=== PATIENT | male | born 1980 | race Caucasian/White ===

== ENCOUNTER 2022-04-02 19:20 | Emergency (ER) | payer BC, OTHER ==
[~2022-04-02] VITALS: Ht 162.6 cm; Wt 121.1 kg
--- OUTSIDE RECORDS SUMMARY | 2022-04-02 19:24 | XMS ---
PreManage Notification: RY ROSARIO Security Circus Performer Events No recent Security Events currently on file CR[facility]IA MET - [facility] There are no care providers on record at this time. Trisha has no Care Guidelines for this patient. Amanda VISIT COUNT (12 MO.) 1 LISA Cox TOTAL 1 NOTE: Visits indicate total known visits. ED/C VISIT TRACKING (12 MO.) 04/02/2022 19:23 LISA White [place] TYPE: Emergency COMPLAINT: - R SIDE PAIN INPATIENT VISIT TRACKING (12 MO.) No inpatient visits to display in this time frame [email or web address]
[2022-04-02] MEDS ORDERED: LISINOPRIL-HCT1 EACH PO (19:35)
[2022-04-02] MEDS ORDERED: TESTOSTERO200 MG/1 M IM (19:35)
== END 2022-04-02 21:28 | disposition home or self-care (01) ==
LOC: ED 19:20
DX: R10.31 Right lower quadrant pain (principal); Z79.899 Other long term (current) drug therapy
CPT/HCPCS: 36415; 74176; 80053; 81003; 83690; 85025; 99284-25; J7030

== ENCOUNTER 2024-01-01 07:31 | Day surgery (SDC) | payer BC, OTHER ==
[~2024-01-01] VITALS: Ht 162.6 cm; Wt 120.0 kg
[~2024-01-01 07:31] MED LIST: IBLOOD GLUCOSE TEST STRIP 1 EA TEST VI PRN; LACTATED RINGER'S 1,000 ML IV SCH; LIDOCAINE HCL 1% 5 ML SDV INJ ONE; LISINOPRIL-HCT1 EACH PO; MIDAZOLAM HCL 5 MG/5 ML VIAL IV PRN; TESTOSTERO200 MG/1 M IM; VITAMIN D3125 MC1 PO; fentaNYL citrate 100 MCG/2 ML VIAL IV PRN
[2024-01-01 08:00] VITALS: BP 142/86
--- NOTE | 2024-01-01 08:16 | NUR ---
mom waiting and is dray driver.
[2024-01-01] MEDS ORDERED: fentaNYL citrate 100 MCG/2 ML VIAL ONE (08:29)
[2024-01-01] MEDS ORDERED: MIDAZOLAM HCL 5 MG/5 ML VIAL ONE (08:29)
--- NOTE | 2024-01-01 09:22 | NUR ---
01/01/24 0922 Lisa Fitzpatrick 0910-PATIENT ARRIVED TO PACU ON 3L NC HOB ELEVATED. PATIENT DROWSY ORIENTED TO PACU DENIES PAIN OR NAUSEA. IVF INFUSING. ENCOURAGED TO PASS GAS. 0920-PATIENT REMAINS DROWSY DOZES OFF AND ON 3L NC 96% RR EVEN. STOP BANG SCORE OF 3. SLEEP APNEA HANDOUT TO BE GIVEN.
[2024-01-01 09:49] VITALS: BP 139/85
--- NOTE | 2024-01-02 06:01 | OR ---
[facility] [address] [place], [place] [address] Signed DATE OF OPERATION: 01/01/2024 SURGEON: Juvenal Torres MD PREOPERATIVE DIAGNOSES: 1. Screening. 2. Anal pain. 3. Constipation, diarrhea. POSTOPERATIVE DIAGNOSES: 1. Multiple small perianal skin tags. 2. Healed anterior midline anal fissure. 3. Minimal internal hemorrhoids. 4. Hypertensive anal sphincter tone. PROCEDURE: Colonoscopy with random cold biopsies. ESTIMATED BLOOD LOSS: None. INDICATIONS: Willian is a 43-year-old, obese gentleman with a body mass index of 45. He has a very round full face, very short heavy thick neck, very heavy chest and abdomen. He had been asked to see me in the office mainly for screening purposes. He tells me there is no family history of colon cancer or polyps. He started to talk about various issues with his lower GI tract. He said sometimes he has constipation, sometimes diarrhea. He said sometimes he feels pressure and sometimes there is some pain at the anus. He is describing some level of constipation and diarrhea. He had come to the office with his friend. I gave him a pamphlet on colonoscopy. We had reviewed the nature of the test. There is risk including, but not limited to gas bloating, crampy abdominal pain, bleeding, perforation requiring surgery, and missed diagnosis. We also reviewed the written instructions for a bowel prep line by line. He understands the need for IV conscious sedation. He understands and adult person has to take him home afterwards. He had expressed understanding and wished to proceed. PROCEDURE IN DETAIL: Willian was taken into our endoscopy suite and placed in the left lateral decubitus position. He was given a total of 125 mcg of fentanyl and 7 mg of Versed. Even then he was still awake. We had to switch him over to 8 L/minute on OxyMask to maintain his O2 Electronically Signed By: JUVENAL TORRES MD 01/02/24 0601 PATIENT NAME: WILLIAN ROSARIO OPERATIVE REPORT DATE OF : 76 REPORT #: [id number] PHYSICIAN: JUVENAL TORRES MD PCP: BRAD ASTUDILLO MD REPORT IS CONFIDENTIAL AND NOT TO BE RELEASED WITHOUT AUTHORIZATION [facility] [address] [place], [place] [address] Signed sats. I think in the future given his body habitus and what we saw today, he really needs monitored anesthesia care with propofol infusion for his safety and comfort. A digital rectal exam was performed and we were able to shine our light down on the anus. He has incredibly large gluteus and a very deep cleft. He has multiple small perianal skin tags. He has an old anterior midline anal fissure. He had incredible hypertensive sphincter tone. There were no masses. The adult colonoscope had been introduced and advanced very slowly around and into the cecum with the help of our nurse with some abdominal compression. His prep was good. We could see the appendiceal orifice and the ileocecal valve. The scope was then slowly withdrawn. We took several pictures throughout for photodocumentation. We took several random cold biopsies throughout because of the history of diarrhea and constipation. We found no pathology in the colon or rectum. Once the scope was retroflexed, we can see a standard internal hemorrhoid columns along with several small internal anal skin tags. After this, the gas was suctioned out. The colonoscope removed. Willian tolerated the procedure overall well. Nevertheless, in the future I think he will be much better served and much safer with monitored anesthesia care. RECOMMENDATIONS: I will see Willian back in my office in 7 to 14 days to review his results. We will go over the conservative treatment for perianal hygiene including Balneol lotion. Hopefully this will settle down his recurring anterior midline anal fissure. Juvenal Torres MD ALB/MODL /[id number] cc: KEREN Aburto MD Copies: JUVENAL TORRES MD ~ Electronically Signed By: JUVENAL TORRES MD 01/02/24 0601 PATIENT NAME: WILLIAN ROSARIO OPERATIVE REPORT DATE OF : 76 REPORT #: [id number] PHYSICIAN: JUVENAL TORRES MD PCP: BRAD ASTUDILLO MD REPORT IS CONFIDENTIAL AND NOT TO BE RELEASED WITHOUT AUTHORIZATION
--- NOTE | 2024-01-03 14:52 | PATH ---
[facility] [address] [facility] [place], [place] [address] Signed SPECIMEN(S): A RANDOM COLON BIOPSIES SPECIMEN SOURCE: A. RANDOM COLON BIOPSIES CLINICAL HISTORY: Screening diarrhea constipation FINAL PATHOLOGIC DIAGNOSIS: Colon, biopsy: - Colonic mucosa with no significant pathologic changes BRP MICROSCOPIC EXAMINATION: Histologic sections of all submitted blocks are examined by light microscopy. These findings, together with the gross examination, support the pathologic diagnosis. GROSS DESCRIPTION: The specimen, labeled and designated "Aditi Meza, per the requisition random colon biopsy," is received in formalin and consists of 3 maza tissue fragments ranging from 0.3 to 0.4 cm in greatest dimension. The specimen is entirely submitted in cassette A1. AA (under the direct supervision of a pathologist) The Gross Description was prepared using a voice recognition system. The report was reviewed for accuracy; however, sound-alike word errors, addition and/or deletions may occur. If there is any question about this report, please contact Client Services. ADDITIONAL NOTES: Immunohistochemical and/or in situ hybridization studies if performed in this case included appropriate positive controls that reacted as expected. This test was developed and its performance characteristics determined by [facility]. It has not been cleared or approved by the U.S. Food and Drug Administration. The FDA has determined that such clearance or approval is not necessary. This test is used for clinical purposes. It should not be regarded as investigational or for research. [facility] is certified under the Clinical Laboratory Improvement Amendments of 1988 (CLIA) as qualified to perform high complexity clinical laboratory testing. PATIENT NAME: RY MEZA PATHOLOGY DATE OF : 76 REPORT #: [id number] PHYSICIAN: JEFFERY CASH PCP: BRAD ASTUDILLO MD REPORT IS CONFIDENTIAL AND NOT TO BE RELEASED WITHOUT AUTHORIZATION [address] [place], [place] [address] Signed PERFORMING LABORATORY: Technical component was performed by [facility], [address] [place] [address] (CLIA# [id number]). [facility] [address] [id number] Diagnostician: Nirmal So MD Pathologist Electronically Signed 01/03/2024 Copies: ~ PATIENT NAME: RY MEZA PATHOLOGY DATE OF : 76 REPORT #: [id number] PHYSICIAN: JEFFERY CASH PCP: BRAD ASTUDILLO MD REPORT IS CONFIDENTIAL AND NOT TO BE RELEASED WITHOUT AUTHORIZATION
== END 2024-01-01 10:00 | disposition home or self-care (01) ==
LOC: DS 07:31
PROVIDERS: ATTEND Colon & Rectal Surgery
PROC: 0DBE8ZX Excision of Large Intestine, Via Natural or Artificial Opening Endoscopic, Diagnostic (ICD-10-PCS; principal; 2024-01-01 09:00)
DX: Z12.11 Encounter for screening for malignant neoplasm of colon (principal); K64.4 Residual hemorrhoidal skin tags; K64.8 Other hemorrhoids; E66.9 Obesity, unspecified; I10 Essential (primary) hypertension; E78.5 Hyperlipidemia, unspecified; E55.9 Vitamin D deficiency, unspecified; K60.2 Anal fissure, unspecified; Z68.42 Body mass index [BMI] 45.0-49.9, adult
CPT/HCPCS: 99153; G0500; J2250; J3010; J7121

== ENCOUNTER 2024-11-07 08:27 | Day surgery (SDC) | payer BC ==
[~2024-11-07] VITALS: Ht 162.6 cm; Wt 120.0 kg
[2024-11-07] VITALS (11 sets, daily range): BP systolic 118–158; BP diastolic 63–94
[~2024-11-07 08:27] MED LIST changes: +CEFAZOLIN SODIUM 2 GM/20 ML SYR IV SCH; +HEParin SOD (PORCINE) 5,000 UNIT/ML SDV SUB-Q SCH; -MIDAZOLAM HCL 5 MG/5 ML VIAL IV PRN; -fentaNYL citrate 100 MCG/2 ML VIAL IV PRN
--- NOTE | 2024-11-07 09:11 | NUR ---
MOM AT BS AND IS WEB CONTENT WRITER.
[2024-11-07] MEDS ORDERED: BUPIVACAINE HCL 0.5% 30 ML VIAL ONE (10:09)
[2024-11-07] MEDS ORDERED: LIDOCAINE HCL 1% 30 ML SDV ONE (10:10)
[2024-11-07] MEDS ORDERED: SODIUM CHLORIDE 0.9% 40 ML IV ONE (10:11)
--- NOTE | 2024-11-07 10:33 | NUR ---
in to talk with pt.
[2024-11-07] MEDS ORDERED: LIDOCAINE HCL 2% 5 ML SDV ONE (10:53)
[2024-11-07] MEDS ORDERED: ROCURONIUM BROMIDE 50 MG/5 ML SYR ONE ×2 (10:53→13:35)
[2024-11-07] MEDS ORDERED: MIDAZOLAM HCL 2 MG/2 ML VIAL ONE (11:05)
[2024-11-07] MEDS ORDERED: SUCCINYLCHOLINE IN 0.9% NACL 200 MG/10 ML SYRINGE ONE (11:05)
[2024-11-07] MEDS ORDERED: fentaNYL citrate 100 MCG/2 ML VIAL ONE (11:05)
[2024-11-07] MEDS ORDERED: KETOROLAC TROMETHAMINE 30 MG/ML VIAL ONE (12:44)
[2024-11-07] MEDS ORDERED: CEFAZOLIN SOD 1,000 MG/10 ML VIAL ONE (12:44)
[2024-11-07] MEDS ORDERED: ACETAMINOPHEN 1,000 MG/100 ML VIAL ONE (12:44)
[2024-11-07] MEDS ORDERED: HYDROmorphone HCL 1 MG/ML SYR IV PRN (12:45)
[2024-11-07] MEDS ORDERED: NALOXONE HCL 0.4 MG SYR IV PRN (12:45)
[2024-11-07] MEDS ORDERED: IBLOOD GLUCOSE TEST STRIP 1 EA TEST VI PRN (12:45)
[2024-11-07] MEDS ORDERED: METOCLOPRAMIDE HCL 10 MG/2 ML SDV IV PRN (12:45)
[2024-11-07] MEDS ORDERED: fentaNYL citrate 50 MCG/ML SDV IV PRN (12:45)
[2024-11-07] MEDS ORDERED: SEVOFLURANE 250 ML BTL INH ONE (13:24)
[2024-11-07] MEDS ORDERED: SUGAMMADEX SODIUM 200 MG/2 ML ML ONE (13:59)
--- NOTE | 2024-11-07 14:49 | NUR ---
11/07/24 Janice Posada 1433- PT ARRIVES TO PACU, SEMI BEAVERS POSITION, O2 AT 6L PER MASK, OPA IN PLACE, JAW THRUST REQUIRED TO MAINTAIN AIRWAY. LR INFUSING TO RFA IV. ABD SOFT, NON DISTENDED, 5 LAP SITES WITH DERMABOND. ALL MONITORS IN PLACE. 1445- PT REMAINS NON REACTIVE TO STIMULUS, INTERMITTENT JAW THRUST WITH HEAD POSITIONING NEEDED. WILL CONTINUE TO MONITOR.
[2024-11-07] MEDS ORDERED: ACETAMINOPHEN/CODEINE #3 1 EA TAB PO PRN ×2 (15:45→17:45)
[2024-11-07] MEDS ORDERED: MORPHINE SULFATE 4 MG/ML VIAL IV PRN ×2 (15:45→17:45)
--- NOTE | 2024-11-07 16:08 | NUR ---
RATES PAIN 7/10 TYLENOL WITH CODIENE GIVEN AFTER JELLO AND JUICE.
[2024-11-07] MEDS ORDERED: PHENAZOPYRIDINE HCL 100 MG TAB PO ONE (16:45)
--- NOTE | 2024-11-07 16:47 | NUR ---
VOIDED 75 MLS DARK DANDY URINE. STATES HES FEELING THE NEED TO VOID. BLADDER SCANNED FOR 216MLS. CALL TO DR HAYDEN TO GIVE PYRIDIUM.
--- NOTE | 2024-11-07 17:17 | NUR ---
NOT C/O BLADDER ISSUES STATES "i gotta poop" up to br.
--- NOTE | 2024-11-07 17:36 | NUR ---
up to br vomiting dr casas here to be extended stay.
[2024-11-07] MEDS ORDERED: DEXTROSE 5% - LACTATED RINGERS 1,000 ML IV SCH (17:45)
--- NOTE | 2024-11-07 17:59 | NUR ---
TRANSFERED TO 114 FOR EXTENDED STAY. REPORT GIVEN TO JERRY MCCORMICK. BELONGINGS WITH PT. MOM TOOK SCRIPT TO FILL.
--- NOTE | 2024-11-07 18:00 | NUR ---
PT ARRIVES TO MEDSUR ROOM, AMBULATES TO BED INDEPENDENTLY W/O DIFFICULTY. PT C/O 8/10 PAIN IN RUQ, NO ORDERS AVAILABLE AT THIS TIME. PT DENIES NAUSEA AT THIS TIME. PT REQUESTS ICE WATER, GIVEN. PT STATES NO FURHTER NEEDS. CALL LIGHT WITHIN REACH.
--- NOTE | 2024-11-07 20:12 | NUR ---
REPORT RECEIVED FROM JACE EDWARDS. PATIENT IN BED WITH HOB RAISED, EYES OPEN, CHEST RISE EVEN AND UNLABORED. CALL LIGHT AND PERSONAL BELONGINGS IN REACH OF PATIENT. PATIENT'S IV SITE ON RIGHT ARM DOES NOT FLUSH, PATIENT REPORTS PAIN AT IV SITE. IV DC'D. UNABLE TO OBTAIN NEW IV AFTER 1 ATTEMPT. JACE GARCÍA IN ROOM WITH PATIENT ATTEMPTING NEW IV START. CPOX PLACED ON PATIENT. ICE IN PLACE.
[2024-11-07] MEDS ORDERED: PHENAZOPYRIDINE HCL 100 MG TAB PO SCH (21:00)
--- NOTE | 2024-11-07 21:20 | NUR ---
PATIENT IN BED WITH HOB RAISED, EYES OPEN. CHEST RISE EVEN AND UNALBORED. ASSESMENT COMPLETED. CALL LIGHT AND PERSONAL BELONGINGS IN REACH. CPOX IN PLACE. SCDS ON, IV FLUID INFUSING WITHOUT DIFFICULTY. PATIENT DENIES CONCERNS.
--- NOTE | 2024-11-07 21:45 | NUR ---
PT C/O NAUSEA, NO VOMITING NOTED. MAR REVIEWED, PT UNABLE TO RECEIVE ZOFRAN UNTIL 2330. PT INFORMED AND PROVIDED SALTINES AND ALCOHOL SWABS. PT VERBALIZED UNDERSTANDING.
--- NOTE | 2024-11-07 21:58 | NUR ---
PT ASSISTED TO BRP. STEADY GAIT. VOID 250ML ORANGE URINE. PT REQUESTING TO SIT UP IN RECLINER. WHEELS LOCKED, CALL HAMILTON IN REACH. PT REPORTS NAUSEA HAS SUBSIDED AT THIS TIME.
--- NOTE | 2024-11-07 23:00 | NUR ---
PATIENT HAS URINATED. PATIENT ASSISTED TO RESTROOM AND BACK TO BED. PATIENT REPORTS NAUSEA HAS RESOLVED SINCE TRANSFERING FROM BED TO CHAIR. PATIENT REPORTS HE WILL NOT HAVE A RIDE TO HOME AT THIS TIME OF NIGHT. CPOX IN PLACE, IV FLUID INFUSING WITHOUT DIFFICULTY. PATIENT REQUESTS TO DISCUSS DISCHARGE IN THE MORNING. PATIENT IS TOLERATING CLEAR LIQUID SIET WELL. I PROVIDED PATIENT WITH SANDWICH. PATIENT DENIES CONCNERS AT THIS TIME. CALL LIGHT AND PERSONAL BELONGINGS IN REACH OF PATIENT.
[2024-11-08] VITALS (9 sets, daily range): BP systolic 117–174; BP diastolic 64–77
--- NOTE | 2024-11-08 00:10 | NUR ---
PATIENT IN CHAIR, EYES OPEN, CHEAT RISE EVEN AND UNLABORED. CALL LIGHT AND PERSONAL BELONGINGS IN REACH OF PATIENT. IV FLUID INFUSING WITHOUT DIFFICULTY. PATIENT DENIES CONCERNS AT THIS TIME.
--- NOTE | 2024-11-08 00:39 | NUR ---
PATIENT IN CHAIR, EYES OPEN, CHEST RISE EVEN AND UNLABORED. PATIENT HAS EATEN 100% OF SANDWICH. PATIENT DENIES CONCERNS AT THIS TIME. IV FLUID INFUSING WIHTOUT DIFFICULTY. CPOX IN PLACE.
--- NOTE | 2024-11-08 01:59 | NUR ---
PROTOZOOLOGIST OBTAINED VITALS AND I&O. PT STATES NO NEEDS AT THIS TIME. CALL LIGHT WITHIN REACH.
--- NOTE | 2024-11-08 02:15 | NUR ---
PATIENT IN CHAIR, EYES CLOSED, CHEST RISE EVEN AND UNLABORED. CALL LIGHT AND PERSONAL BELONGINGS IN REACH OF PATIENT. IV FLUID INFUSING WITHOUT DIFFICULTY PATIENT DENIES CONCERNS AT THIS TIME.
--- NOTE | 2024-11-08 03:46 | NUR ---
CALL LIGHT ANSWERED. PT STATES NEED TO USE BATHROOM. ELECTRONICS MANUFACTURER SBA TO ABTHROOM. PT VOIDED AND ASSISTED BACK TO CHAIR. PT STATES NO FURTHER NEEDS AT THIS TIME. CALL LIGHT WITHIN REACH.
--- NOTE | 2024-11-08 04:22 | NUR ---
PATIENT IN CHAIR, EYES OPEN, CHEST RISE EVEN AND UNLABORED. PATIENT SUPPLIED WITH ICE WATER AT HIS REQUEST. PATIENT DENIES FURTHER CONCERNS AT THIS TIME.
--- NOTE | 2024-11-08 05:55 | NUR ---
PATIENT IN CHAIR, HOME PLANNING CONSULTANT SALESPERSON IN ROOM. PATIENT ASSISTED TO BATHROOM AND BACK TO CHAIR, VITAL SIGNS COMPLETED. NEW BAG OF IV FLUIDS HUNG. PATIENT DENIES CONCERNS AT THIS TIME.
--- NOTE | 2024-11-08 07:20 | NUR ---
RECIEVED REPORT FROM JACE DIAS. PT UP TO CHAIR, STATES NO CURRENT NEEDS, STATES HE FEELS READY TO GO HOME THIS MORNING. CALL LIGHT WITHIN REACH.
--- NOTE | 2024-11-08 07:59 | NUR ---
THIS RN CALLS DR. HAYDEN TO UPDATE ON PT STATUS AND ASK IF PT OKAY TO DC THIS MORNING. STATES HE WILL COME TO BEDSIDE THIS MORNING TO ASSESS AND DC PT. PT UPDATED.
--- NOTE | 2024-11-08 09:28 | NUR ---
PATIENT IN CHAIR AT THIS TIME. MAINT MECHANIC CHARTED VITALS AND I&O'S. CALL LIGHT WITHIN REACH, NO FURTHER NEEDS AT THIS TIME.
--- NOTE | 2024-11-08 10:15 | NUR ---
DR. HAYDEN TO BEDSIDE. STATES PT IS OKAY TO DC.
--- NOTE | 2024-11-08 11:00 | NUR ---
PT DRESSES SELF IN OWN CLOTHES. VSS. DC PACKET AND INSTRUCTIONS GIVEN TO PT. PT VERBALIZES UNDERSTANDING AND STATES ALL QUESTIONS HAVE BEEN ANSWERED. IV DC'D WNL. PT LEAVING WITH ALL BELONGINGS. PT AMBULATES INDEPENDENLTY TO WHEELCHAIR, WHEELED TO FRONT OF BUILDING BY NURSING PERSONEL.
--- NOTE | 2024-11-08 22:19 | EKG ---
[facility] [address] [facility] [place] [address] Signed Normal sinus rhythm Normal ECG No previous ECGs available Confirmed by Nicol Santamaria MD () on 11/08/2024 10:19:48 PM Electronically Signed By: NICOL SANTAMARIA MD 11/08/24 2219 PATIENT NAME: RY ROSARIO Electrocardiogram DATE OF : 76 PHYSICIAN: NICOL SANTAMARIA MD REPORT #: [id number] REPORT IS CONFIDENTIAL AND NOT TO BE RELEASED WITHOUT AUTHORIZATION
--- NOTE | 2024-11-11 17:31 | PATH ---
[facility] [address] [place], [place] [address] Signed SPECIMEN(S): A GALLBLADDER SPECIMEN(S): B APPENDIX SPECIMEN SOURCE: A. GALLBLADDER B. APPENDIX CLINICAL HISTORY: Chronic cholecystitis. Right lower quadrant pain. FINAL PATHOLOGIC DIAGNOSIS: A. Gallbladder, cholecystectomy: - Mild chronic cholecystitis with cholesterolosis. - No malignancy identified. B. Appendix, appendectomy: - Benign appendiceal tissue with fibrous obliteration of lumen - No acute appendicitis or neoplasm identified. [facility] MICROSCOPIC EXAMINATION: Histologic sections of all submitted blocks are examined by light microscopy. These findings, together with the gross examination, support the pathologic diagnosis. GROSS DESCRIPTION: A. The specimen, labeled and designated "Aditi Meza, " and designated on the requisition "gallbladder," is received in formalin and consists of Specimen: Previously opened gallbladder. Dimensions: 7.4 x 3.5 x 1.8 cm. Serosa: Violaceous and smooth with adherent adipose tissue. Cystic Duct: Ink, probe patent. Calculi: Not grossly identified. Mucosa: [place]-brown with diffuse areas of yellow flecking. Wall thickness: 0.4 cm. Lymph node: One pink possible pericystic lymph node that is 0.7 cm in greatest dimension. Additional: None. Back Shoe Operator sections are submitted in (A1). B. The specimen, labeled and designated "Aditi Meza, " and designated on the requisition "appendix," is received in formalin and consists of Specimen: Appendix with mesoappendix. PATIENT NAME: RY MEZA PATHOLOGY DATE OF : 76 REPORT #: [id number] PHYSICIAN: JEFFERY CASH PCP: BRAD ASTUDILLO MD REPORT IS CONFIDENTIAL AND NOT TO BE RELEASED WITHOUT AUTHORIZATION [facility] [address] [place], [place] [address] Signed Dimensions: 6.1 x 0.6 cm. Serosa: [place]-maza and smooth. Defect: Not grossly identified. Inking: Staple line is inked Blue. Mucosa: Pale pink and finely granular. Fecalith: Not grossly identified. Additional: None. Entirely submitted in (B1-B2). Only the staple line and mesoappendix remain within the container. FB (under the direct supervision of a pathologist) The Gross Description was prepared using a voice recognition system. The report was reviewed for accuracy; however, sound-alike word errors, addition and/or deletions may occur. If there is any question about this report, please contact Client Services. ADDITIONAL NOTES: Immunohistochemical and/or in situ hybridization studies if performed in this case included appropriate positive controls that reacted as expected. This test was developed and its performance characteristics determined by [facility]. It has not been cleared or approved by the U.S. Food and Drug Administration. The FDA has determined that such clearance or approval is not necessary. This test is used for clinical purposes. It should not be regarded as investigational or for research. [facility] is certified under the Clinical Laboratory Improvement Amendments of 1988 (CLIA) as qualified to perform high complexity clinical laboratory testing. PERFORMING LABORATORY: Technical component was performed by [facility], [address] [place] [id number] (CLIA# [id number]). Professional interpretation was performed by [facility], [address] [place] [id number] (CLIA#: [id number]). Diagnostician: Benjamin Lo MD Pathologist Electronically Signed 11/11/2024 Copies: PATIENT NAME: RY MEZA PATHOLOGY DATE OF : 76 REPORT #: [id number] PHYSICIAN: JEFFERY PATHOLOGY PCP: BRAD ASTUDILLO MD REPORT IS CONFIDENTIAL AND NOT TO BE RELEASED WITHOUT AUTHORIZATION [address] [address] Signed ~ PATIENT NAME: RY MEZA PATHOLOGY DATE OF : 76 REPORT #: [id number] PHYSICIAN: JEFFERY PATHOLOGY PCP: BRAD ASTUDILLO MD REPORT IS CONFIDENTIAL AND NOT TO BE RELEASED WITHOUT AUTHORIZATION
== END 2024-11-08 11:05 | disposition home or self-care (01) ==
LOC: DS 08:27 → OPS 08:27 → DS 11:30 → MS 18:30 → OPS 11-08 11:05
PROVIDERS: ATTEND Surgery
PROC: 0DTJ4ZZ Resection of Appendix, Percutaneous Endoscopic Approach (ICD-10-PCS; 2024-11-07)
PROC: 0FT44ZZ Resection of Gallbladder, Percutaneous Endoscopic Approach (ICD-10-PCS; principal; 2024-11-07 10:50)
PROC: BF03YZZ Plain Radiography of Gallbladder and Bile Ducts using Other Contrast (ICD-10-PCS; 2024-11-07 10:50)
DX: K81.1 Chronic cholecystitis (principal); K38.8 Other specified diseases of appendix; K66.0 Peritoneal adhesions (postprocedural) (postinfection); I10 Essential (primary) hypertension; E29.1 Testicular hypofunction; E66.9 Obesity, unspecified; Z68.42 Body mass index [BMI] 45.0-49.9, adult; Z79.899 Other long term (current) drug therapy
CPT/HCPCS: 00840; 93005; 93010; 94762; A9270; J0131; J0330; J0690; J1171; J1644; J1885; J2003; J2250; J2405; J2704; J3010; J3490; J7121

== ENCOUNTER 2024-12-31 07:13 | Day surgery (SDC) | payer BC ==
[~2024-12-31] VITALS: Ht 162.6 cm; Wt 118.0 kg
[~2024-12-31 07:13] MED LIST changes: -CEFAZOLIN SODIUM 2 GM/20 ML SYR IV SCH; -HEParin SOD (PORCINE) 5,000 UNIT/ML SDV SUB-Q SCH; +SCOPOLAMINE 1 MG/3 DAYS PATCH 1 EACH TDSY TD SCH
[2024-12-31 07:28] VITALS: BP 152/94
--- NOTE | 2024-12-31 10:09 | NUR ---
12/31/24 Jayme9 Virgie Nixon PT TO PACU AWAKE AND ALERT ASKING QUESTIONS ABOUT PROCEDURE AND CONVERSING WITH STAFF. PT DENIES PAIN AND NAUSEA. PT PASSING [place]
[2024-12-31 10:30] VITALS: BP 148/94
--- NOTE | 2025-01-01 15:47 | OR ---
[facility] [address] [place] [place] [address] Signed DATE OF OPERATION: 12/31/2024 SURGEON: Tate Quinones DO PREOPERATIVE DIAGNOSES: Unexplained rectal bleeding and diarrhea. POSTOPERATIVE DIAGNOSES: Unexplained rectal bleeding and diarrhea with diverticulosis and internal hemorrhoids. PROCEDURE PERFORMED: Colonoscopy. ANESTHESIA: IV sedation. ESTIMATED BLOOD LOSS: None. DRAINS: None. COMPLICATIONS: None. DESCRIPTION OF PROCEDURE: The patient was brought to the GI lab, placed in the supine position. After induction of IV sedation, the patient was then placed in the left lateral position, padded to the satisfaction of anesthesia. The Olympus video colonoscope was then introduced into the rectum, and while under direct visualization and insufflation, scope was advanced from the rectosigmoid, sigmoid colon, descending colon, transverse colon, and ascending colon into the cecum. The colon was insufflated and exploration of mucosal surface was then carried out. No intrinsic or extrinsic masses were appreciated in the ascending colon or the cecum. The scope was brought back past hepatic flexure to the transverse colon. No intrinsic or extrinsic masses, no lesions or ulcerations were noted. The scope was then brought back by the splenic flexure and the descending colon. No intrinsic or extrinsic masses were appreciated. Scope was brought back into the sigmoid colon. Scattered diverticula were noted, but they were more numerous in the distal aspect of the sigmoid colon. No evidence of bleeding. No evidence of diverticulitis was noted. No other intrinsic or extrinsic masses were appreciated. The scope was then brought Electronically Signed By: TATE QUINONES DO 01/01/25 0808 PATIENT NAME: RY ROSARIO OPERATIVE REPORT DATE OF : 76 REPORT #: [id number] PHYSICIAN: TATE QUINONES DO PCP: BRAD ASTUDILLO MD REPORT IS CONFIDENTIAL AND NOT TO BE RELEASED WITHOUT AUTHORIZATION [address] [address] Signed back into the rectosigmoid, and in the rectal vault area, some large internal hemorrhoids were noted. These were circumferential, nonbleeding at this time and nonprolapse. The colon was decompressed. Scope was withdrawn. The patient tolerated the procedure well and to recovery room in satisfactory condition. DO BETTE Valverde/CESARL /[id number] Copies: ~ Electronically Signed By: TATE QUINONES DO 01/01/25 0808 PATIENT NAME: RY ROSARIO OPERATIVE REPORT DATE OF : 76 REPORT #: [id number] PHYSICIAN: TATE QUINONES DO PCP: BRAD ASTUDILLO MD REPORT IS CONFIDENTIAL AND NOT TO BE RELEASED WITHOUT AUTHORIZATION
== END 2024-12-31 10:40 | disposition home or self-care (01) ==
LOC: DS 07:13 → OPS 07:13
PROVIDERS: ATTEND Surgery
PROC: 0DJD8ZZ Inspection of Lower Intestinal Tract, Via Natural or Artificial Opening Endoscopic (ICD-10-PCS; principal; 2024-12-31 10:00)
DX: K62.5 Hemorrhage of anus and rectum (principal); R19.7 Diarrhea, unspecified; K64.8 Other hemorrhoids; K57.30 Diverticulosis of large intestine without perforation or abscess without bleeding; I10 Essential (primary) hypertension; E78.5 Hyperlipidemia, unspecified; F39 Unspecified mood [affective] disorder; E66.9 Obesity, unspecified; Z68.42 Body mass index [BMI] 45.0-49.9, adult; Z87.891 Personal history of nicotine dependence; Z79.899 Other long term (current) drug therapy
CPT/HCPCS: 00811; J7121